=== PATIENT | female | born 1950 | race Caucasian/White ===

== ENCOUNTER → 2017-05-18 | Outpatient (CLI) | payer MEDICARE ==
[2017-05-18 09:11] LABS: Anisocytosis Slight; Basophils % (A) 0 %; CH 21.2; CHCM 30.6; Eosinophils # (A) 0.3 k/uL (0-0.7); Eosinophils % (A) 3 %; HCT 39.7 % (34.0-46.0); HDW 2.92; HGB 11.9 gm/dL (11.4-16.0); Hypochromasia Moderate; Luc # (Auto) 0.08; Luc % (Auto) 1; Lymphocytes # (A) 1.5 k/uL (1.0-4.8); Lymphocytes % (A) 20 %; MCH 20.9 pg (25.0-35.0); MCV 69.9 fL (80.0-100.0); Mean Platelet Volume 7.7; Microcytosis Moderate; Monocytes # (A) 0.3 k/uL (0-1.0); Monocytes % (A) 4 %; Neutrophils # (A) 5.5 k/uL (1.3-7.7); Neutrophils % (A) 72 %; RBC 5.69 m/uL (3.80-5.40); RDW 16.5 % (11.5-15.5); WBC 7.7 k/uL (3.8-10.6); WBC (Perox) 7.91
[2017-05-18 09:33] LABS: ALT 33 U/L (9-52); AST 25 U/L (14-36); Alkaline Phosphatase 57 U/L (38-126); Anion Gap 7 mmol/L; Blood Urea Nitrogen 17 mg/dL (7-17); Carbon Dioxide 27 mmol/L (22-30); Chloride 104 mmol/L (98-107); Cholesterol 201 mg/dL (<200); Glucose 111 mg/dL (74-99); HDL Cholesterol 81 mg/dL (40-60); Non-African American GFR(MDRD) >60 (>60 ml/min/1.73 sqM); Potassium 4.2 mmol/L (3.5-5.1); Sodium 138 mmol/L (137-145); Total Bilirubin 0.8 mg/dL (0.2-1.3); Total Protein 7.4 g/dL (6.3-8.2)
--- NOTE | 2017-05-19 12:42 | MM ---
Reason for exam: screening (asymptomatic). Last mammogram was performed 1 year ago. History: Patient is postmenopausal, has history of other cancer at age 38, and is nulliparous. Family history of breast cancer in sister at age 56 and breast cancer in aunt. Benign stereotactic core biopsy of the left breast, October 06, 1999. Core biopsy of the left breast. Took estrogen for 1 year beginning at age 50. Physical Findings: A clinical breast exam by your physician is recommended on an annual basis and results should be correlated with mammographic findings. MG 3D Screening Mammo W/Cad Bilateral CC and MLO view(s) were taken. Prior study comparison: May 05, 2016, bilateral MG 3d screening mammo w/cad. May 01, 2015, bilateral MG screening mammo w CAD. The breast tissue is extremely dense which could obscure a lesion on mammography. There is no discrete abnormality. ASSESSMENT: Negative, BI-RAD 1 RECOMMENDATION: Routine screening mammogram of both breasts in 1 year.
== END | disposition home or self-care (01) ==
LOC: RADMAMWWP 08:28
PROVIDERS: ATTEND Family Medicine
DX: Z12.31 Encounter for screening mammogram for malignant neoplasm of breast (principal); Z00.01 Encounter for general adult medical examination with abnormal findings; Z13.820 Encounter for screening for osteoporosis; Z11.59 Encounter for screening for other viral diseases
CPT/HCPCS: 80061; 80053; 80074; 84443; 85025; 82306; 77063; 36415; G0202

== ENCOUNTER → 2017-12-23 | Outpatient (CLI) | payer MEDICARE ==
--- NOTE | 2017-12-23 09:18 | US ---
EXAMINATION TYPE: US abdomen complete DATE OF EXAM: 12/23/2017 COMPARISON: CT Lung CLINICAL HISTORY: R74.8 Abnormal levels of other serum enzymes. Elevated LFT's EXAM MEASUREMENTS: Liver Length: 15.8 cm Gallbladder Wall: 0.2 cm CBD: 0.5 cm, common hepatic duct measures 0.7. Spleen: 9.0 cm Right Kidney: 9.1 x 3.8 x 4.5 cm Left Kidney: 9.8 x 4.3 x 3.8 cm Pancreas: Appeared wnl Liver: There is a heterogenous and hyperechoic hepatic echotexture, most commonly related to underly ing hepatic steatosis. This limits evaluation for hepatic masses. No discrete masses seen on today's examination. Gallbladder: wnl Evidence for sonographic Bagley's sign: No CBD: wnl Spleen: Multiple granulomas Right Kidney: wnl Left Kidney: wnl Upper IVC: wnl Abd Aorta: wnl of size The intrahepatic portion of the IVC and proximal abdominal aorta are within normal limits. There is no evidence of cholelithiasis. Common bile duct is unremarkable. The visualized portions of the gan creas are homogenous. The spleen is unremarkable. Kidneys are symmetric and free of hydronephrosis. No renal lesions are seen. IMPRESSION: 1. Sonographic findings most commonly related to hepatic steatosis, appearing mild in degree. 2. No evidence of cholelithiasis or acute cholecystitis.
== END | disposition home or self-care (01) ==
LOC: RADUSWWP 08:01
PROVIDERS: ATTEND Family Medicine
DX: R74.8 Abnormal levels of other serum enzymes (principal)
CPT/HCPCS: 76700

== ENCOUNTER → 2018-01-24 | Outpatient (CLI) | payer MEDICARE ==
--- NOTE | 2018-01-24 09:00 | CTL ---
EXAMINATION TYPE: CT Low Dose Lung DATE OF EXAM ORDERED: 01/24/2018 HISTORY: . Lung cancer screening CT DLP: 65.[address] CTDI: 1.9 mGy Automated exposure control for dose reduction was used. SCREENING VISIT: Subsequent COMPARISON: 05/26/2016 TECHNIQUE: Low dose computed tomography scan was performed through the chest at 1 mm thick sections a nd reconstructed images in the coronal plane at [address] DIAGNOSTIC QUALITY: Satisfactory FINDINGS: LUNG NODULES: Present, detailed below: There is some stable apical scarring medial right apex. There is a large calcified granuloma in the posterior medial left lung base measuring 0.8 cm. Series 4 image 235. Tiny stable adjacent calcification with a transverse dimension 0.2 cm is adjacent. Small amount of pleural calcifications present in this region. An additional calcified granuloma is at the left lung base measuring 0.6 cm present previously LUNGS: COPD: Severity: Mild Fibrosis: Severity: None Lymph nodes: Calcified small lymph nodes within the mediastinum. These were present previously. Other findings: None RIGHT PLEURAL SPACE: Effusion: None Calcification: None Thickening: None Pneumothorax: None LEFT PLEURAL SPACE: Effusion: None Calcification: Minimal adjacent to the calcified granuloma at the left lung base, present previously Thickening: None Pneumothorax: None HEART: Heart Size: Normal Coronary calcification: None Pericardial effusion: None OTHER FINDINGS: Upper abdomen: Normal. Calcified granuloma are within the spleen Bony thorax: Normal Supraclavicular region: Normal Other: None IMPRESSION: Granulomatous disease left lung base, spleen, and mediastinal lymph nodes. FOLLOW UP CT CHEST RECOMMENDATION: Screening per protocol CT LUNG RAD: Lung-Rad 2 Benign Appearance or Behavior
== END | disposition home or self-care (01) ==
LOC: RADCTMAIN 08:14
PROVIDERS: ATTEND Family Medicine
DX: Z12.2 Encounter for screening for malignant neoplasm of respiratory organs (principal); J84.10 Pulmonary fibrosis, unspecified; Z87.891 Personal history of nicotine dependence

== ENCOUNTER → 2018-05-31 | Outpatient (CLI) | payer MEDICARE ==
--- NOTE | 2018-06-01 14:52 | MM ---
Reason for exam: screening (asymptomatic). Last mammogram was performed 1 year ago. History: Patient is postmenopausal, has history of other cancer at age 38, and is nulliparous. Family history of breast cancer in sister at age 56 and breast cancer in aunt. Benign stereotactic core biopsy of the left breast, October 06, 1999. Core biopsy of the left breast. Took estrogen for 1 year beginning at age 50. Physical Findings: A clinical breast exam by your physician is recommended on an annual basis and results should be correlated with mammographic findings. MG 3D Screening Mammo W/Cad Bilateral CC and MLO view(s) were taken. Prior study comparison: May 18, 2017, bilateral MG 3d screening mammo w/cad. May 05, 2016, bilateral MG 3d screening mammo w/cad. The breast tissue is heterogeneously dense. This may lower the sensitivity of mammography. There is no discrete abnormality. No significant changes when compared with prior studies. ASSESSMENT: Negative, BI-RAD 1 RECOMMENDATION: Routine screening mammogram of both breasts in 1 year.
== END | disposition home or self-care (01) ==
LOC: RADMAMWWP 06:55
PROVIDERS: ATTEND Family Medicine
DX: Z12.31 Encounter for screening mammogram for malignant neoplasm of breast (principal)
CPT/HCPCS: 77063; 77067

== ENCOUNTER → 2019-05-22 | Outpatient (CLI) | payer MEDICARE ==
--- NOTE | 2019-05-22 08:51 | CTL ---
EXAMINATION TYPE: CT Low Dose Lung DATE OF EXAM ORDERED: 05/22/2019 HISTORY: Personal history of tobacco abuse. Lung cancer screening CT DLP: 66.[address] CTDI: 2.0 mGy Automated exposure control for dose reduction was used. SCREENING VISIT: Subsequent COMPARISON: Low-dose CT dated 01/24/2018 and 05/26/2016 TECHNIQUE: Low dose computed tomography scan was performed through the chest at 1 mm thick sections a nd reconstructed images in the coronal plane at [address] DIAGNOSTIC QUALITY: Satisfactory FINDINGS: LUNG NODULES: There is a 2 mm subpleural noncalcified lateral right upper lobe pulmonary nodule on image 110. This is retrospectively stable from the prior of 2018 and 2016, benign. There is a similar solid right middle lobe subpleural pulmonary nodule on image 168 retrospectively s table from 2016, benign. 2 mm solid pulmonary nodule in the right lower lobe is retrospectively stable from 2016 marked on ser ies 4 image 144, benign. There are scattered benign calcified pulmonary granulomas again noted bilaterally. LUNGS: COPD: Severity: Mild centrilobular Fibrosis: Severity: Calcified biapical pleural-parenchymal scarring. Lymph nodes: Numerous benign calcified mediastinal granulomas. RIGHT PLEURAL SPACE: Effusion: None Calcification: None Thickening: None Pneumothorax: None LEFT PLEURAL SPACE: Effusion: None Calcification: None Thickening: None Pneumothorax: None HEART: Heart Size: Nonenlarged Coronary calcification: Few coronary artery calcifications Pericardial effusion: None OTHER FINDINGS: Upper abdomen: Benign splenic granulomas. Small hiatal hernia. Bony thorax: Mild multilevel degenerative disc disease of the thoracic spine Supraclavicular region: Unremarkable IMPRESSION: Lung RADS 2-benign appearance or behavior. Punctate right-sided pulmonary nodules are sta ble back to 2016 and should be considered benign. Additional benign granulomatous change. FOLLOW UP CT CHEST RECOMMENDATION: Low-dose CT chest in [address] LUNG RAD: Lung-Rad 2 Benign Appearance or Behavior
== END | disposition home or self-care (01) ==
LOC: RADCTMAIN 07:36
PROVIDERS: ATTEND Family Medicine
DX: Z12.2 Encounter for screening for malignant neoplasm of respiratory organs (principal); R91.8 Other nonspecific abnormal finding of lung field; F17.200 Nicotine dependence, unspecified, uncomplicated

== ENCOUNTER → 2019-06-13 | Outpatient (CLI) | payer MEDICARE ==
--- NOTE | 2019-06-15 08:49 | MM ---
Reason for exam: screening (asymptomatic). Last mammogram was performed 1 year ago. History: Patient is postmenopausal, has history of other cancer at age 38, and is nulliparous. Family history of breast cancer in sister at age 56 and breast cancer in aunt. Benign stereotactic core biopsy of the left breast, October 06, 1999. Core biopsy of the left breast. Took estrogen for 1 year beginning at age 50. Physical Findings: A clinical breast exam by your physician is recommended on an annual basis and results should be correlated with mammographic findings. MG 3D Screening Mammo W/Cad Bilateral CC and MLO view(s) were taken. Prior study comparison: May 31, 2018, bilateral MG 3d screening mammo w/cad. May 18, 2017, bilateral MG 3d screening mammo w/cad. The breast tissue is heterogeneously dense. This may lower the sensitivity of mammography. There is chronic nodularity in the right breast. 5mm left lateral middle depth asymmetry. No clear correlate on MLO. ASSESSMENT: Incomplete: need additional imaging evaluation, BI-RAD 0 RECOMMENDATION: Special view mammogram of the left breast. If lesion persists on supplemental views, image directed ultrasound is recommended. [facility] will attempt to contact patient to return for supplemental views and ultrasound if indicated.
== END | disposition home or self-care (01) ==
LOC: RADMAMWWP 07:39
PROVIDERS: ATTEND Family Medicine
DX: Z12.31 Encounter for screening mammogram for malignant neoplasm of breast (principal)
CPT/HCPCS: 77063; 77067

== ENCOUNTER → 2019-06-21 | Outpatient (CLI) | payer MEDICARE ==
--- NOTE | 2019-06-21 10:45 | MM ---
Reason for exam: additional evaluation requested from abnormal screening. Last mammogram was performed less than 1 month ago. History: Patient is postmenopausal, has history of other cancer at age 38, and is nulliparous. Family history of breast cancer in sister at age 56 and breast cancer in aunt. Benign stereotactic core biopsy of the left breast, October 06, 1999. Core biopsy of the left breast. Took estrogen for 1 year beginning at age 50. Physical Findings: Nurse did not find any significant physical abnormalities on exam. MG 3D Work Up W/Cad LT Spot compression CC and LM view(s) were taken of the left breast. Prior study comparison: June 13, 2019, bilateral MG 3d screening mammo w/cad. May 31, 2018, bilateral MG 3d screening mammo w/cad. December 08, 2011, bilateral digital screening mammo w/CAD. Asymmetric breast tissue left outer aspect middle depth, not changed from 2012 image. No new lesion. These results were verbally communicated with the patient and result sheet given to the patient on 06/21/19. ASSESSMENT: Benign, BI-RAD 2 RECOMMENDATION: Return to routine screening mammogram schedule for both breasts.
== END | disposition home or self-care (01) ==
LOC: RADMAMWWP 07:53
PROVIDERS: ATTEND Family Medicine
DX: R92.8 Other abnormal and inconclusive findings on diagnostic imaging of breast (principal)
CPT/HCPCS: 77065; G0279; 77061

== ENCOUNTER → 2020-06-17 | Outpatient (CLI) | payer MEDICARE ==
--- NOTE | 2020-06-18 11:28 | MM ---
Reason for exam: screening (asymptomatic). Last mammogram was performed 1 year ago. History: Patient is postmenopausal, has history of other cancer at age 38, and is nulliparous. Family history of breast cancer in sister at age 56 and breast cancer in aunt. Benign stereotactic core biopsy of the left breast, October 06, 1999. Core biopsy of the left breast. Took estrogen for 1 year beginning at age 50. Physical Findings: A clinical breast exam by your physician is recommended on an annual basis and results should be correlated with mammographic findings. MG 3D Screening Mammo W/Cad Bilateral CC and MLO view(s) were taken. Prior study comparison: June 21, 2019, left breast MG 3d work up w/cad LT. June 13, 2019, bilateral MG 3d screening mammo w/cad. The breast tissue is heterogeneously dense. This may lower the sensitivity of mammography. There is no discrete abnormality. ASSESSMENT: Negative, BI-RAD 1 RECOMMENDATION: Routine screening mammogram of both breasts in 1 year.
== END | disposition home or self-care (01) ==
LOC: RADMAMWWP 07:48
PROVIDERS: ATTEND Family Medicine
DX: Z12.31 Encounter for screening mammogram for malignant neoplasm of breast (principal)
CPT/HCPCS: 77063; 77067

== ENCOUNTER → 2022-10-15 | Outpatient (CLI) | payer MEDICARE ==
--- NOTE | 2022-10-16 08:15 | MM ---
Reason for Exam: Screening (asymptomatic). Last screening mammogram was performed 12 month(s) ago. Patient History: Menarche at age 13. Patient has no children. Postmenopausal. Other cancer, age 38. Estrogen for 1 year from age 50 until age 50. Core Biopsy on the Left side. 10/06/1999, Benign Stereotactic Core Biopsy on the left side. Maternal aunt had breast cancer. Sister had breast cancer, age 56. Risk Values: Ardiana 5 year model risk: 5.2%. NCI Lifetime model risk: 13.0%. Prior Study Comparison: 06/21/2019 Left Diagnostic Mammogram, [facility]. 06/17/2020 Bilateral Screening Mammogram, [facility]. 10/07/2021 Bilateral Screening Mammogram, [facility]. Tissue Density: The breast tissue is heterogeneously dense. This may lower the sensitivity of mammography. Findings: Analyzed By CAD. There is no suspicious group of microcalcifications or new suspicious mass in either breast. Overall Assessment: Negative, BI-RAD 1 Management: Screening Mammogram of both breasts in 1 year. A clinical breast exam by your physician is recommended on an annual basis and results should be correlated with mammographic findings. Electronically signed and approved by: Luis Miguel Benavidez D.O.
== END | disposition home or self-care (01) ==
LOC: RADMAMWWP 07:42
PROVIDERS: ATTEND Family Medicine
DX: Z12.31 Encounter for screening mammogram for malignant neoplasm of breast (principal); Z78.0 Asymptomatic menopausal state; Z80.3 Family history of malignant neoplasm of breast
CPT/HCPCS: 77063; 77067

== ENCOUNTER → 2022-10-19 | Outpatient (CLI) | payer MEDICARE ==
[2022-10-19 17:18] LABS: ALT 56 U/L (8-44); AST 44 U/L (13-35); African American GFR (CKD) 77.8 (60.0-200.0); Albumin 4.5 g/dL (3.8-4.9); Albumin/Globulin Ratio 1.85 (1.60-3.17); Alkaline Phosphatase 57 U/L (41-126); BUN/Creat Ratio 17.82 Ratio (12.00-20.00); Blood Urea Nitrogen 15.4 mg/dL (9.0-27.0); Calcium 9.9 mg/dL (8.7-10.3); Carbon Dioxide 26.8 mmol/L (20.0-27.5); Chloride 102 mmol/L (96-109); Chol/HDL Ratio 2.22 Ratio; Globulin 2.4 g/dL (1.6-3.3); Glucose 101 mg/dL (70-110); LDL Cholesterol,Calculated 110.6 mg/dL (0.0-131.0); Non-African American GFR(CKD) 67.1 (60.0-200.0); Potassium 4.2 mmol/L (3.5-5.5); Sodium 141 mmol/L (135-145); Total Protein 6.9 g/dL (6.2-8.2)
[2022-10-19 18:19] LABS: Basophils # (A) 0.03 X 10*3/uL (0.00-0.10); Basophils % (A) 0.5 %; Eosinophils # (A) 0.14 X 10*3/uL (0.04-0.35); Eosinophils % (A) 2.2 %; HCT 39.1 % (37.2-46.3); HGB 11.8 g/dL (12.0-15.0); Immature Grans, Automated 0.2 %; Lymphocytes # (A) 1.62 X 10*3/uL (0.90-5.00); Lymphocytes % (A) 25.2 %; MCH 21.6 pg (27.0-32.0); MCHC 30.2 g/dL (32.0-37.0); MCV 71.6 fL (80.0-97.0); Monocytes # (A) 0.42 X 10*3/uL (0.20-1.00); Monocytes % (A) 6.5 %; NRBC Per 100 WBC 0 /100 WBCS (0.0-0.0); Neutrophils % (A) 65.4 %; Platelet Count 194 X 10*3/uL (140-440); RBC 5.46 X 10*6/uL (4.10-5.20); RDW 15.2 % (11.5-14.5); WBC 6.42 X 10*3/uL (4.50-10.00)
[2022-10-19 18:20] LABS: Elliptocytes 2+; Target Cells 2+
== END | disposition home or self-care (01) ==
LOC: LABWHC1 09:33
PROVIDERS: ATTEND Nurse Practitioner Adult Health
DX: Z00.01 Encounter for general adult medical examination with abnormal findings (principal); Z13.1 Encounter for screening for diabetes mellitus; M81.0 Age-related osteoporosis without current pathological fracture
CPT/HCPCS: 36415; 80053; 80061; 82306; 83036; 84439; 84443; 85025

== ENCOUNTER → 2022-10-19 | Outpatient (CLI) | payer MEDICARE ==
--- NOTE | 2022-10-19 10:49 | CTL ---
EXAMINATION TYPE: CT Low Dose Lung DATE OF EXAM ORDERED: 10/19/2022 HISTORY: Z87.891. Lung cancer screening CT DLP: 65.[address] CTDI: 2.0 mGy Automated exposure control for dose reduction was used. SCREENING VISIT: Follow-up COMPARISON: Multiple CT low-dose lung cancer screening exams with most recently 05/22/2019 TECHNIQUE: Low dose computed tomography scan was performed through the chest at 1 mm thick sections a nd reconstructed images in multiple planes at 1 mm and [address] DIAGNOSTIC QUALITY: Satisfactory FINDINGS: LUNG NODULES: Stable 2 mm subpleural lateral right upper lobe pulmonary nodule (series 3, image 99). Stable 2 mm park bpleural right middle lobe pulmonary nodule (series 3, image 160). Stable 2 mm pulmonary nodule in th e right lower lobe (series 3, image 136). No new or enlarging pulmonary nodules. Scattered benign calcified pulmonary granulomas again noted bilaterally. LUNGS: COPD: Severity: Mild Fibrosis: Severity: Biapical pleural-parenchymal scar redemonstrated. Lymph nodes: Stable calcified mediastinal lymph nodes redemonstrated. Other findings: None RIGHT PLEURAL SPACE: Effusion: None Calcification: None Thickening: None Pneumothorax: None LEFT PLEURAL SPACE: Effusion: None Calcification: None Thickening: None Pneumothorax: None HEART: Heart Size: Normal Coronary Calcification: Small Pericardial Effusion: None OTHER FINDINGS: Upper abdomen: Calcified granulomas within the spleen. Small hiatal hernia. Bony thorax: No acute osseous abnormality. Multilevel degenerative changes of the visualized spine. Supraclavicular region: None Other: None IMPRESSION: 1. Stable few pulmonary nodules measuring up to 2 mm and considered benign. No new or enlarging pulmo nary nodules. 2. Mild COPD changes. 3. Sequelae of prior granulomatous disease. CT LUNG RAD AND CT CHEST RECOMMENDATION: Lung-Rad 2 Benign Appearance or Behavior: Continue annual sc reening with LDCT in 12 months. S Modifier (other clinically significant findings): None
== END | disposition home or self-care (01) ==
LOC: RADCTMAIN 09:17
PROVIDERS: ATTEND Family Medicine
DX: Z12.2 Encounter for screening for malignant neoplasm of respiratory organs (principal); J44.9 Chronic obstructive pulmonary disease, unspecified; R91.8 Other nonspecific abnormal finding of lung field; F17.210 Nicotine dependence, cigarettes, uncomplicated
CPT/HCPCS: 71271

== ENCOUNTER → 2023-10-21 | Outpatient (CLI) | payer MEDICARE ==
--- NOTE | 2023-10-21 10:16 | CTL ---
EXAMINATION TYPE: CT Low Dose Lung DATE OF EXAM ORDERED: 10/21/2023 HISTORY : Lung cancer screening CT DLP: 64.7 mGycm Automated exposure control for dose reduction was used. COMPARISON: 10/19/2022 TECHNIQUE: Low dose computed tomography scan was performed through the chest at 1 mm thick sections a nd reconstructed images in multiple planes at 1 mm and [address] DIAGNOSTIC QUALITY: Satisfactory FINDINGS: There are stable mild to moderate emphysematous changes. There is a stable 4 mm nodule in the right lower lobe. There are 2 stable dense calcified granulomas in the left lung base. There are a few scattered micronodules bilaterally. No new or suspicious lung mass or nodule seen. There is no abnormal airspace/consolidated density or abnormal interstitial density. There is no pleural effusion, pleural thickening or pneumothorax. The great vessels chest are normal there is no mediastinal, hilar or axillary adenopathy. There are m ultiple calcified mediastinal lymph nodes. Limited scanning through the upper abdomen reveals no gross abnormality. No focal osseous lesions are seen. IMPRESSION: 1. Lung RADS category 2 benign. Continue routine screening at yearly intervals. 2. Stable mild to moderate emphysematous changes. 3. No acute cardiopulmonary disease.
[2023-10-21 11:40] LABS: ALT 58 U/L (8-44); AST 50 U/L (13-35); Albumin 4.8 g/dL (3.8-4.9); Albumin/Globulin Ratio 1.71 Ratio (1.60-3.17); Alkaline Phosphatase 66 U/L (41-126); BUN/Creat Ratio 16.62 Ratio (12.00-20.00); Blood Urea Nitrogen 13.3 mg/dL (9.0-27.0); Calcium 10.6 mg/dL (8.7-10.3); Carbon Dioxide 23.4 mmol/L (21.6-31.8); Chloride 100 mmol/L (96-109); Chol/HDL Ratio 2.12 Ratio; Globulin 2.8 g/dL (1.6-3.3); Glucose 119 mg/dL (70-110); LDL Cholesterol,Calculated 111.9 mg/dL (0.0-131.0); Potassium 4.2 mmol/L (3.5-5.5); Sodium 138 mmol/L (135-145); T4, Free (Free Thyroxine) 1.44 ng/dL (0.80-1.80); Total Bilirubin 1.1 mg/dL (0.3-1.2); Total Protein 7.6 g/dL (6.2-8.2); VLDL Calculation 19.08 mg/dL (5.00-40.00)
[2023-10-21 11:44] LABS: Basophils # (A) 0.04 X 10*3/uL (0.00-0.10); Basophils % (A) 0.6 %; Eosinophils # (A) 0.16 X 10*3/uL (0.04-0.35); Eosinophils % (A) 2.3 %; HCT 41.1 % (37.2-46.3); HGB 12.5 g/dL (12.0-15.0); Lymphocytes # (A) 1.61 X 10*3/uL (0.90-5.00); Lymphocytes % (A) 22.9 %; MCH 21.7 pg (27.0-32.0); MCHC 30.4 g/dL (32.0-37.0); MCV 71.2 FL (80.0-97.0); Mean Platelet Volume 11.8 FL (9.5-12.2); Microcytosis (M) 2+; Monocytes # (A) 0.48 X 10*3/uL (0.20-1.00); Monocytes % (A) 6.8 %; NRBC Per 100 WBC 0 X 10*3/uL (0.00-0.01); Neutrophils # (A) 4.71 X 10*3/uL (1.80-7.70); Neutrophils % (A) 67.1 %; Platelet Count 205 X 10*3/uL (140-440); RBC 5.77 X 10*6/uL (4.10-5.20); RDW 16.1 % (11.5-14.5); Target Cells 2+; WBC 7.02 X 10*3/uL (4.50-10.00)
--- NOTE | 2023-10-21 20:16 | MM ---
Reason for Exam: Screening (asymptomatic). Last screening mammogram was performed 12 month(s) ago. Patient History: Menarche at age 13. Patient has no children. Postmenopausal. Estrogen for 1 year from age 50 until age 50. Core Biopsy on the Left side. 10/06/1999, Benign Stereotactic Core Biopsy on the left side. Maternal aunt had breast cancer. Sister had breast cancer, age 56. Risk Values: Adriana 5 year model risk: 5.2%. NCI Lifetime model risk: 12.3%. Prior Study Comparison: 06/17/2020 Bilateral Screening Mammogram, [facility]. 10/07/2021 Bilateral Screening Mammogram, [facility]. 10/15/2022 Bilateral MG 3D screening mammo w/cad, [facility]. Tissue Density: The breasts are heterogeneously dense, which may obscure small masses. Findings: Analyzed By CAD. The pattern is symmetrical. No significant interval change is evident. No suspicious groups of microcalcifications, spiculated or lobular masses, architectural distortion or other secondary signs of malignancy are mammographically apparent. Overall Assessment: Benign, BI-RAD 2 Management: Screening Mammogram of both breasts in 1 year. A negative mammogram report should not preclude additional follow up of suspicious palpable abnormalities. Patient should continue monthly self breast exam. A clinical breast exam by your physician is recommended on an annual basis and results should be correlated with mammographic findings. Note on Adriana scores and lifetime risk: 1. A Adriana score greater than 3% is considered moderate risk. If this is the case, consider specialist referral to assess eligibility for a risk reducing agent. 2. If overall lifetime risk for the development of breast cancer is 20% or higher, the patient may qualify for future screening with alternating mammogram and breast MRI. Electronically signed and approved by: Sinan Mcwilliams D.O. Radiologis
== END | disposition home or self-care (01) ==
LOC: RADCTMAIN 07:43
PROVIDERS: ATTEND Family Medicine
DX: Z12.31 Encounter for screening mammogram for malignant neoplasm of breast (principal); Z12.2 Encounter for screening for malignant neoplasm of respiratory organs; Z00.01 Encounter for general adult medical examination with abnormal findings; Z13.1 Encounter for screening for diabetes mellitus; R92.333 Mammographic heterogeneous density, bilateral breasts; Z78.0 Asymptomatic menopausal state; Z80.3 Family history of malignant neoplasm of breast
CPT/HCPCS: 71271; 77063; 77067; 80053; 80061; 83036; 84439; 84443; 85025

== ENCOUNTER 2024-11-25 11:19 | Emergency (ER) | payer MEDICARE ==
[2024-11-25] MEDS: FAMOTIDINE 20 MG TAB PO STA (11:43)
[2024-11-25] MEDS: methylPREDNISolone SOD SUCCI 125 MG/2 ML VIAL IM ONE (11:43)
[2024-11-25] MEDS: diphenhydrAMINE 50 MG/ML 1 ML VIAL IM STA (11:44)
--- NOTE | 2024-11-25 12:00 | ED ---
Skin/Abscess/FB HPI - General Chief complaint: Skin/Abscess/Foreign Body Stated complaint: Rash Time Seen by Provider: 11/25/24 11:31 Source: patient, RN notes reviewed Mode of arrival: ambulatory Limitations: no limitations - History of Present Illness Initial comments: This is a 74-year-old female who presents to the emergency department for a rash. States that it started on her leg last night but when she woke up this morning her whole body was covered in an itchy red rash. She finished Bactrim and mupirocin ointment for an abscess under her left breast yesterday, which she states is doing much better. Unsure if she has ever been on these medications before. Denies any chest pain or shortness of breath. She has not yet taken anything for the rash. MD complaint: rash - Related Data Home Medications Medication Instructions Recorded Confirmed Aspirin [Adult Low Dose Aspirin EC] 81 mg PO HS 04/23/16 04/23/16 Cholecalciferol [Vitamin D3] 1,000 unit PO DAILY 04/23/16 04/23/16 Ferrous Sulfate [Iron (65 MG 325 mg PO DAILY 04/23/16 04/23/16 Elemental)] Hair,Skin And Nails 3000 1 each PO DAILY 04/23/16 Magnesium Oxide [Mag-Ox] 250 mg PO DAILY 04/23/16 04/23/16 Vitamin B Complex 1 each PO DAILY 04/23/16 04/23/16 flaxseed oiL [[place]-3 Flaxseed Oil] 1,000 mg PO DAILY 04/23/16 04/23/16 Previous Rx's Medication Instructions Recorded predniSONE 50 mg PO DAILY 5 Days #5 tab 11/25/24 Allergies Allergy/AdvReac Type Severity Reaction Status Date / Time mupirocin Allergy Rash/Hives Verified 11/25/24 13:31 sulfamethoxazole Allergy Rash/Hives Verified 11/25/24 12:00 [From Bactrim] trimethoprim [From Bactrim] Allergy Rash/Hives Verified 11/25/24 12:00 Review of Systems ROS Statement: Those systems with pertinent positive or pertinent negative responses have been documented in the HPI. ROS Other: All systems not noted in ROS Statement are negative. Past Medical History Additional Past Medical History / Comment(s): ANEMIA History of Any Multi-Drug Resistant Organisms: None Reported Additional Past Surgical History / Comment(s): eye sx. MULTIPLE COLONOSCOPIES Past Anesthesia/Blood Transfusion Reactions: No Reported Reaction Past Psychological History: No Psychological Hx Reported Smoking Status: Current every day smoker, Never smoker Past Alcohol Use History: Daily Past Drug Use History: None Reported - Past Family History Sister(s) Family Medical History: Cancer Additional Family Medical History / Comment(s): LUNG General Exam Limitations: no limitations General appearance: alert, in no apparent distress Head exam: Present: atraumatic, normocephalic, normal inspection Respiratory exam: Present: normal lung sounds bilaterally. Absent: respiratory distress, wheezes, rales, rhonchi, stridor Cardiovascular Exam: Present: regular rate, normal rhythm Neurological exam: Present: alert, oriented X3, CN II-XII intact Psychiatric exam: Present: normal affect, normal mood Skin exam: Present: other (Urticaria to the bilateral upper and lower extremities as well as trunk) Course Vital Signs 11/25/24 11/25/24 11:22 13:10 Temperature 97.6 F 98.0 F Pulse Rate 101 H 96 Respiratory 18 20 Rate Blood Pressure 143/85 136/78 O2 Sat by Pulse 98 99 Oximetry Medical Decision Making - Medical Decision Making This is a 74-year-old female who presents to the emergency department for a rash. Was pt. sent in by a medical professional or institution? @ -No Did you speak to anyone other than the patient for history? @ -No Did you review nursing and triage notes? @ -Yes, and I agree, it is accurate with regards to the patient's symptoms. Were old charts reviewed? @ -No Differential Diagnosis? @ -Roseola, measles, Lyme disease, erythema multiforme, cellulitis, toxic shock syndrome, Fidencio Jamari syndrome, Kawasaki disease, raymundo mountain spotted fever, contact dermatitis, allergic dermatitis, measles, mumps, rubella, varicella, meningococcal disease, drug reaction, coxsackievirus, This is not meant to be an all-inclusive list. EKG interpreted by me (3pts min.)? @ -Not obtained X-rays interpreted by me (1pt min.)? @ -Not obtained CT interpreted by me (1pt min.)? @ -Not obtained U/S interpreted by me (1pt. min.)? @ -Not obtained What testing was considered but not performed? (CT, X-rays, U/S, labs)? Why? @ -None What meds were considered but not given? Why? @ -None Did you discuss the management of the patient with other professionals? @ -No Did you reconcile home meds? @ -No Was smoking cessation discussed for >3mins.? @ -I discussed smoking cessation for greater than 3 minutes. The risk of smoking were discussed with the patient including but not limited to risks of cancer, stroke, coronary artery disease and COPD. Also discussed with patient were multiple methods of quitting smoking. Lastly we discussed the financial cost of smoking. Was critical care preformed (if so, how long)? @ -No Were there social determinants of health that impacted care today? How? (Homelessness, low income, unemployed, alcoholism, drug addiction, transportation, low edu. Level, literacy, decrease access to med. care, assisted, rehab)? @ -No Was there de-escalation of care discussed even if they declined? (Discuss DNR or withdrawal of care, Hospice)? @ -No What co-morbidities impacted this encounter? (DM, HTN, Smoking, COPD, CAD, Cancer, CVA, Hep., AIDS, mental health diagnosis, sleep apnea, morbid obesity)? @ -Smoking Was patient admitted / discharged? @ -Discharged. Patient presents with a diffuse urticarial reaction. This was likely caused by the Bactrim she was taking for the breast abscess, however the mupirocin ointment could have also been a culprit. Both of these medications were added to her allergy list. She was not exhibiting any respiratory symptoms. She was given an allergy cocktail consisting of Solu-Medrol, Benadryl, and famotidine. Triamcinolone cream was also provided to be used as a spot treatment on her extremities. On reevaluation she had significant improvement in symptoms. Prescription for an additional 5-day dose of predni sone was provided. Advised she continue with [id number] Benadryl and the triamcinolone cream as well. Patient discharged home in stable condition. Case discussed with ED attending Dr. Chahal. Return precautions reviewed in depth, the patient is instructed to return to the emergency department with any new, worsening, or concerning symptoms. Patient verbalized understanding. Undiagnosed new problem with uncertain prognosis? @ -None Drug Therapy requiring intensive monitoring for toxicity (Heparin, Nitro, Insulin, Cardizem)? @ -None Were any procedures done? @ -None Diagnosis/symptom? @ -Allergic reaction to drug Acute, or Chronic, or Acute on Chronic? @ -Acute Uncomplicated (without systemic symptoms) or Complicated (systemic symptoms)? @ -Uncomplicated Side effects of treatment? @ -None Exacerbation, Progression, or Severe Exacerbation] @ -Not applicable Poses a threat to life or bodily function? @ -No Disposition Clinical Impression: Allergic reaction caused by a drug, Nicotine dependence Disposition: HOME SELF-CARE Instructions (If sedation given, give patient instructions): Urticaria (ED), General Allergic Reaction (ED) Additional Instructions: Return to the emergency department with any new, worsening, or concerning symptoms. Continue taking an [id number] antihistamine like Benadryl as needed for itching. If you continue to have a rash or itching you can cook pickled meat the prednisone prescribed, which will be taken daily for the next 5 days. You can also continue to apply the triamcinolone cream you were sent home with in the emergency department. This can be applied 3-4 times daily. Follow up with your primary care provider for reevaluation. Prescriptions: predniSONE 50 mg PO DAILY 5 Days #5 tab Is patient prescribed a controlled substance at d/c from ED?: No Referrals: Carson Cruz MD [Primary Care Provider] - 1-2 days Time of Disposition: 12:58
[2024-11-25] MEDS: TRIAMCINOLONE 0.1% CREAM 80 GM TUBE TOPICAL STA (12:14)
[2024-11-25 13:14] VITALS: BP 136/78; PULSE 96; RESP 20; TEMP 98
== END 2024-11-25 13:14 | disposition home or self-care (01) ==
LOC: EC 11:19
DX: R21 Rash and other nonspecific skin eruption (principal); T50.905A Adverse effect of unspecified drugs, medicaments and biological substances, initial encounter; F17.200 Nicotine dependence, unspecified, uncomplicated; Z88.1 Allergy status to other antibiotic agents; Z88.2 Allergy status to sulfonamides; Z88.8 Allergy status to other drugs, medicaments and biological substances
CPT/HCPCS: 99283; 96372 ×2; J1200; J2919

== ENCOUNTER → 2025-01-11 | Outpatient (CLI) | payer BC ==
--- NOTE | 2025-01-11 08:18 | CTL ---
EXAMINATION TYPE: CT Low Dose Lung DATE OF EXAM ORDERED: 01/11/2025 COMPARISON: Multiple CT Low Dose Lung with most recent 10/21/2023 CLINICAL INDICATION: Female, 74 years old with history of Z12.2 LUNG CA SCR F17.210 Z12.31 BR CA SCR; PH[facility], current smoker, 1 pack a day for 50 years, Lung cancer screening, History of Smoking/tobacco us e. TECHNIQUE: Low dose computed tomography scan was performed through the chest at 1 mm thick sections a nd reconstructed images in multiple planes at 1 mm and [address] DLP: 71.[address] CTDI: 1.90 mGy Automated exposure control for dose reduction was used. CT DIAGNOSTIC QUALITY: Satisfactory FINDINGS: Nodules: Stable medial left lower lobe calcified granulomas with largest measuring up to 8 mm. Additional coup le of calcified granuloma is within the right lower lobe. Couple of stable pulmonary micronodules malini ntified with a example including a subpleural lateral right upper lobe 2 mm nodule (series 4, image 1 41). No new or enlarging pulmonary nodules. LUNGS: COPD: Severity: Mild Fibrosis: Severity: None Lymph nodes: None Other findings: None RIGHT PLEURAL SPACE: Effusion: None Calcification: None Thickening: None Pneumothorax: None LEFT PLEURAL SPACE: Effusion: None Calcification: None Thickening: None Pneumothorax: None HEART: Heart Size: Normal Coronary Calcification: None Pericardial Effusion: None OTHER FINDINGS: Upper abdomen: Calcific granulomas within the spleen. Bony thorax: None Supraclavicular region: None Other: Scattered calcified lymph nodes within the neck and mediastinum. IMPRESSION: 1. Few stable pulmonary micronodules. No new or enlarging pulmonary nodule. 2. Mild emphysematous change. 3. Sequelae of prior granulomatous disease. CT LUNG RAD AND CT CHEST RECOMMENDATION: Lung-Rad 2 Benign Appearance or Behavior: Continue annual sc reening with LDCT in 12 months. S Modifier (other clinically significant findings): None [facility], , 01/11/2025 8:15 AM
--- NOTE | 2025-01-11 08:36 | MM ---
Reason for Exam: Screening (asymptomatic). Last mammogram was performed 1 year(s) and 3 month(s) ago. Patient History: Menarche at age 13. Patient has no children. Postmenopausal. Estrogen for 1 year from age 50 until age 50. Core Biopsy on the Left side. 10/06/1999, Benign Stereotactic Core Biopsy on the left side. Maternal aunt had breast cancer. Sister had breast cancer, age 56. Risk Values: Adriana 5 year model risk: 5.2%. NCI Lifetime model risk: 11.6%. Prior Study Comparison: 10/07/2021 Bilateral Screening Mammogram, [facility]. 10/15/2022 Bilateral MG 3D screening mammo w/cad, [facility]. 10/21/2023 Bilateral MG 3D screening mammo w/cad, [facility]. Tissue Density: The breasts are heterogeneously dense, which may obscure small masses. Findings: Analyzed By CAD. There is no suspicious group of microcalcifications or new suspicious mass in either breast. Overall Assessment: Negative, BI-RAD 1 Management: Screening Mammogram of both breasts in 1 year. . Patient should continue monthly self-breast exams. A clinical breast exam by your physician is recommended on an annual basis. This exam should not preclude additional follow-up of suspicious palpable abnormalities. Note on Adriana scores and lifetime risk: 1. A Adriana score greater than 3% is considered moderate risk. If this is the case, consider specialist referral to assess eligibility for a risk reducing agent. 2. If overall lifetime risk for the development of breast cancer is 20% or higher, the patient may qualify for future screening with alternating mammogram and breast MRI. [facility], , 01/11/2025 8:03 AM. Electronically signed and approved by: Alexy Fernandez M.D.
[2025-01-11 15:37] LABS: ALT 51 U/L (8-44); AST 55 U/L (13-35); Albumin 4.5 g/dL (3.8-4.9); Albumin/Globulin Ratio 1.88 Ratio (1.60-3.17); Alkaline Phosphatase 61 U/L (41-126); Anion Gap 13.40 mmol/L (4.00-12.00); BUN/Creat Ratio 19.14 Ratio (12.00-20.00); Blood Urea Nitrogen 13.4 mg/dL (9.0-27.0); Calcium 9.8 mg/dL (8.7-10.3); Carbon Dioxide 23.6 mmol/L (21.6-31.8); Chloride 102 mmol/L (96-109); Cholesterol 227.00 mg/dL (0.00-200.00); Globulin 2.4 g/dL (1.6-3.3); Glucose 101 mg/dL (70-110); HDL Cholesterol 110.00 mg/dL (40.00-60.00); LDL Cholesterol,Calculated 103.9 mg/dL (0.0-131.0); Potassium 4.8 mmol/L (3.5-5.5); Sodium 139 mmol/L (135-145); T4, Free (Free Thyroxine) 1.31 ng/dL (0.80-1.80); Total Protein 6.9 g/dL (6.2-8.2); Triglycerides 65.40 mg/dL (0.00-149.00); VLDL Calculation 13.08 mg/dL (5.00-40.00)
[2025-01-11 16:28] LABS: Basophils # (A) 0.04 X 10*3/uL (0.00-0.10); Basophils % (A) 0.5 %; Eosinophils # (A) 0.08 X 10*3/uL (0.04-0.35); Eosinophils % (A) 1.0 %; HCT 39.2 % (37.2-46.3); HGB 12.0 g/dL (12.0-15.0); Immature Grans, Automated 0.40 %; Lymphocytes # (A) 1.36 X 10*3/uL (0.90-5.00); Lymphocytes % (A) 17.7 %; MCH 22.0 pg (27.0-32.0); MCHC 30.6 g/dL (32.0-37.0); MCV 71.9 FL (80.0-97.0); Microcytosis (M) 2+ (None Seen); Monocytes # (A) 0.59 X 10*3/uL (0.20-1.00); Monocytes % (A) 7.7 %; NRBC Per 100 WBC 0 X 10*3/uL (0.00-0.01); Neutrophils # (A) 5.58 X 10*3/uL (1.80-7.70); Neutrophils % (A) 72.7 %; Platelet Count 191 X 10*3/uL (140-440); RBC 5.45 X 10*6/uL (4.10-5.20); RDW 17.2 % (11.5-14.5); WBC 7.68 X 10*3/uL (4.50-10.00)
== END | disposition home or self-care (01) ==
LOC: RADCTMAIN 06:29
PROVIDERS: ATTEND Family Medicine
DX: Z12.31 Encounter for screening mammogram for malignant neoplasm of breast (principal); Z12.2 Encounter for screening for malignant neoplasm of respiratory organs; F17.210 Nicotine dependence, cigarettes, uncomplicated; R92.333 Mammographic heterogeneous density, bilateral breasts; R91.8 Other nonspecific abnormal finding of lung field; J43.9 Emphysema, unspecified; Z78.0 Asymptomatic menopausal state; Z80.3 Family history of malignant neoplasm of breast
CPT/HCPCS: 71271; 77063; 77067; 80053; 80061; 83036; 84439; 84443; 85025